=== PATIENT | male | born 1960 | race Caucasian/White ===

== ENCOUNTER 2021-09-02 13:18 | Emergency (ER) | payer MEDICAID, SELFPAY ==
[2021-09-02 14:06] VITALS: BP 129/87; PULSE 79; RESP 16; TEMP 36.8; O2SAT 98; BMI 22.4
[2021-09-02] MEDS: Tetracaine HCl/PF 0.5% Oph Sol 4 ML DROPS 1 DROP EYE-BOTH (16:32)
[2021-09-02] MEDS: Fluorescein Sodium STRIP 1 STRIP EYE-BOTH (16:32)
--- NOTE | 2021-09-02 16:37 | ED.EYEPROB ---
HPI - Eye Problem General Chief complaint: Eye Problems Stated complaint: fb r eye Time Seen by Provider: 09/02/21 16:08 Source: patient Mode of arrival: ambulatory Limitations: no limitations History of Present Illness HPI Narrative: 61-year-old male with no known medical history presents to the emergency department with 3 days of right eye swelling, and pain to the lower eyelid. 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 He states at time he feels a burning sensation to his right eye. States that this morning he woke up with swelling to his right eye. He denies changes in vision, discharge, painful eye movements, fevers, chills, headaches, nausea, vomiting. He does not wear contact lenses. MD chief complaint: eye pain (right ) Onset (ago): day(s) (3) Onset description: gradual Duration: constant Location: right eye Eye Symptoms: burning Mechanism: none Severity: mild If Pain, Quality: burning Associated symptoms: none Treatments Prior to Arrival: none Related Data Previous Rx's Medication Instructions Recorded doxycycline monohydrate 100 mg 100 mg PO BID 10 Days #20 cap 09/02/21 capsule Allergies Allergy/AdvReac Type Severity Reaction Status Date / Time No Known Allergies Allergy Verified 09/02/21 14:05 Review of Systems Review of Systems: Yes all other systems are reviewed and are negative Constitutional: Constitutional: Reports no additional constitutional complaints, Denies body ache(s), Denies chills, Denies fever(s), Denies headache(s) and Denies weakness Eyes: Eyes: Reports no additional eye complaints, Denies change in vision, Reports irritation and Reports other (burning to right eye and swelling and redness ) ENT: Reports system reviewed and no additional complaints, except as documented, Denies dizziness, Denies headache(s), Denies nasal congestion, Denies nasal discharge and Denies neck pain Cardiovascular: Cardiovascular: Reports no additional cardiovascular complaints, Denies chest pain, Denies leg edema and Denies dyspnea Respiratory: Respiratory: Reports no additional respiratory complaints, Denies cough and Denies dyspnea Gastrointestinal: Gastrointestinal: Reports no additional gastrointestinal complaints, Denies abdominal pain, Denies diarrhea, Denies nausea and Denies vomiting Genitourinary: Genitourinary: Denies urinary incontinence Musculoskeletal: Musculoskeletal: Reports no additional musculoskeletal complaints, Denies back pain, Denies arthralgias, Denies joint swelling, Denies neck pain, Denies numbness and Denies tingling Integumentary/Breasts: Skin/Breast: Reports system reviewed and no additional complaints, except as docu and Denies rash Neurologic: Reports system reviewed and no additional complaints, except as documented, Denies Abnormal speech present, Denies dizziness, Denies headache(s), Denies numbness, Denies tingling and Denies weakness PMFSH Past Medical History Attestation statement: The following information was validated with the patient. Source: old records reviewed and nursing notes reviewed Medical History Cancer COVID-19 Social History Social History Advance Directives: No Advance Directives Information Provided: No Physical Exam Vital Signs: Vital Signs: Last Vital Signs Temp 98.3 F 09/02/21 14:06 Pulse 79 09/02/21 14:06 Resp 16 09/02/21 14:06 BP 129/87 09/02/21 14:06 Pulse Ox 98 09/02/21 14:06 Body Mass Index 22.4 Const: General: cooperative, healthy appearing, comfortable and no acute distress Orientation/consciousness: patient oriented x3 Limitations: no limitations HENMT: Head: Yes normal to inspection Ears: hearing grossly normal bilaterally General nose exam: Normal external nose present Face and sinus: Yes normal facial exam Mouth: Normal oral and palatal mucosa present Throat: Yes posterior oropharynx normal Eyes: Visual Key: normal visual key by confrontation Alignment and Position: alignment normal Periorbital: periorbital findings abnormal (Just inferior to the lower eyelid there is errythema and swelling ) right Eyelids: Yes eyelid abnormality (inferior eyelid errythematous and swollen, horedolum noted with eversion ) Conjunctivae: conjunctivae normal Sclerae: sclerae normal Corneas: corneas normal (No uptake with fluorescein staining) Pupils: Equal, round and reactive pupils present EOM: EOMs intact bilaterally and no movement deficit Direct Ophthalmoscopy: no photophobia Neck: Neck: Yes normal visual inspection Chest: Chest palpation & inspection: normal inspection of the chest Resp: Effort & Inspection: normal respiratory effort Auscultation: clear to auscultation bilaterally Cardio: Rate: regular rate Rhythm: regular rhythm Peripheral pulses: Peripheral pulses 2+ throughout GI: Inspection: Yes normal to inspection Palpation (GI): Soft to palpation and nontender Auscultation: normal bowel sounds Back/Spine/Pelvis: Thoracic/Lumbar Spine: thoracic and lumbar spine normal to inspection Skin: General skin exam: no rashes or lesions noted Neuro: General: patient oriented x3, no focal motor deficits and normal sensation to monofilament Cranial nerves: Yes Equal, round and reactive pupils present Cognition (Neuro): normal cognition Speech: No Abnormal speech present Gait exam (Neuro): Normal gait present Motor exam (neuro): 5/5 motor strength present throughout Extrem: General: Yes normal to inspection Course Course Course Narrative: 61-year-old male known past medical history presents to the emergency department with redness and swelling to his right eye and inferior eyelid. 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 Upon physical examination extraocular movements are normal, free of pain. There is a small hordeolum noted to the 4 o'clock position with lid eversion to the right inferior eyelid. There are no corneal abrasions/ increased fluorescien uptake under blue light. Normal pressures bilaterally. There is erythema and swelling noted to the periorbital region however it is most significant over the right inferior lid. His eye discomfort likely being caused due to an internal hordeolum, this is likely not acute closed angle glaucoma, patient's eye pressures are within normal limits left eye 13 right eye 9, he also does not express severe pain, nausea or vomiting. He also denies changes in vision. Likely not orbital cellulitis, he denies pain with extraocular movements. He will be discharged home with follow-up with his PCP, he will be started on doxycycline for hordeolum, this would also cover in case this is a periorbital cellulitis.He has been educated on the diagnosis and has been told to return with new or worsening symptoms. MDM - Eye Problem MDM Narrative Medical decision making narrative: Based off the patient's symptoms and physical exam, fluorescien staining will be done as well as tonometry. Medical Records Attestation: I reviewed the patient's medical records. Lab Data Attestation: I reviewed the patient's lab results. Discharge Plan Discharge Clinical Impression: Hordeolum internum of right eye Qualifiers: Eyelid: lower Qualified Code(s): H00.022 - Hordeolum internum right lower eyelid Patient Disposition: Home, Self-Care Instructions: Radha (ED) Additional Instructions: Apply warm compresses to the area every 4 hours Doxycycline is the antibiotic that is being prescribed, take it to its entirety, stay out of the sun as this can cause skin sensitivity and cause you to burn Follow up with your PCP Return to the emergency department with new or worsening symptoms Prescriptions: New doxycycline monohydrate 100 mg capsule 100 mg PO BID 10 Days Qty: 20 RF: 0 Interventions: ED Discharge Assessment Last Done: 09/02/21 17:14
== END 2021-09-02 17:14 | disposition home or self-care (01) ==
PROVIDERS: Emergency Provider Internal Medicine
DX: H00.022 Hordeolum internum right lower eyelid (principal); H57.11 Ocular pain, right eye; Z79.899 Other long term (current) drug therapy
CPT/HCPCS: 99283

== ENCOUNTER 2025-05-30 14:20 | Emergency (ER) | payer MEDICAID, SELFPAY ==
[2025-05-30 14:47] VITALS: BP 140/78; PULSE 87; RESP 18; TEMP 36.7; O2SAT 97; BMI 23.0
--- NOTE | 2025-05-30 14:47 | ED_ITS ---
HPI - General Adult General Chief complaint: Eye Problems Stated complaint: l eye inj Source: patient Mode of arrival: ambulatory Limitations: no limitations History of Present Illness ED Provider: Genna Dickson PA-C Related Data Previous Rx's ?Medication ?Instructions ?Recorded doxycycline monohydrate 100 mg 100 mg PO BID 10 days # 20 caps 09/02/21 capsule Allergies Allergy/AdvReac Type Severity Reaction Status Date / Time No Known Allergies Allergy Verified 05/30/25 14:49 PMFSH Past Medical History Medical History Cancer COVID-19 Social History Social History Advance Directives: No Advance Directives Information Provided: No Do you have a plan to hurt others: No Plan Physical Exam ED Vital Signs: Vital Signs - 24 hr 05/30/25 14:47 Temperature 98.0 F Pulse Rate 87 Respiratory Rate 18 Blood Pressure 140/78 H Pulse Oximetry 97 Oxygen Delivery Method Room Air BMI result Body Mass Index 23.0 Course Course Course Narrative: RME performed by Genna Dickson PA-C. Patient is a 64 year old assigned male at presenting to the emergency department with left eye pain. Patient states 2 weeks ago he was grinding steel and got some in his left eye. Patient was in no obvious distress, breathing well / normally. Detailed physical exam and review of systems are deferred to the v belt coverer. Patient placed back in the waiting room pending room availability. 1800 ---> Patient left the department without completing treatment. Patient left the department before anyone could perform a full left eye examination. Discharge Plan Discharge Clinical Impression: Eye pain Patient Disposition: Left W/O Completing Treatment Prescriptions: No Action doxycycline monohydrate 100 mg capsule 100 mg PO BID 10 Days Qty: 20 0RF Discharge Date/Time: 05/30/25 20:00
--- NOTE | 2025-05-30 19:50 | PC.NURSE ---
called in WR with no answer
== END 2025-05-30 20:00 | disposition left against medical advice (07) ==
PROVIDERS: Emergency Provider Emergency Medicine
DX: H57.12 Ocular pain, left eye (principal)
CPT/HCPCS: 99281